=== PATIENT | female | born 1965 | race Caucasian/White ===

== ENCOUNTER 2019-02-17 17:36 | Emergency (ER) | payer OTHER ==
[2019-02-17] MEDS ORDERED: Norflex 60 MG/2 ML IM ONE (18:02)
[2019-02-17] MEDS ORDERED: TORAdol 30 mg Injection IM ONE (18:02)
--- NOTE | 2019-02-17 18:08 | ERPHSYRPT ---
- History of Present Illness Time Seen by Provider: 02/17/19 17:51 Source: patient Exam Limitations: no limitations Patient Subjective Stated Complaint: pt here for pain to left side of lower back that radiates to hip, pt denies any injury, she has had this prolem before Triage Nursing Assessment: pt alert, resp easy, skin w/d/p. no edema. Physician History: Pt started c/o pain in the left lumbar area, not radiating, denies any direct or indirect injury, no leg weakness, or loss of balder, bowel control, no abdominal pain, nausea or fever, other complaints, except chronic, recurrent bilateral lower leg numbness. Timing/Duration: day(s) (2), gradual onset Method of Injury: other (denies) Back Pain Location: lumbar spine, paraspinous muscles Severity of Pain-Max: severe Severity of Pain-Current: severe Modifying Factors: Improves With: immobilization, movement Associated Symptoms: numbness in legs/feet (recurrent, chronic) Previous symptoms: no prior history Allergies/Adverse Reactions: No Known Drug Allergies Allergy (Verified 02/17/19 17:57) Hx Influenza Vaccination/Date Given: No Hx Pneumococcal Vaccination/Date Given: No Immunizations Up to Date: Yes - Review of Systems Constitutional: No Symptoms Ears, Nose, & Throat: No Symptoms Respiratory: No Symptoms Cardiac: No Symptoms Abdominal/Gastrointestinal: No Symptoms Genitourinary Symptoms: No Symptoms Musculoskeletal: Back Pain Skin: No Symptoms Neurological: No Symptoms All Other Systems: Reviewed and Negative - Past Medical History Pertinent Past Medical History: Yes Other Medical History: foot pain - Past Surgical History Past Surgical History: Yes Musculoskeletal: Orthopedic Surgery Other Surgical History: shoulder,neck ,toes - Social History Smoking Status: Never smoker Exposure to second hand smoke: No Drug Use: none Patient Lives Alone: No - Female History Hx Last Menstrual Period: post - Nursing Vital Signs Nursing Vital Signs: Initial Vital Signs Temperature 97.2 F 02/17/19 17:51 Pulse Rate 66 02/17/19 17:51 Respiratory Rate 16 02/17/19 17:51 Blood Pressure 150/75 02/17/19 17:51 O2 Sat by Pulse Oximetry 99 02/17/19 17:51 Pain Scale Pain Intensity [Back] 9 Pain Intensity 9 - Physical Exam General Appearance: no apparent distress Eye Exam: eyes nml inspection Ears, Nose, Throat Exam: normal ENT inspection Neck Exam: normal inspection, non-tender Respiratory Exam: normal breath sounds, lungs clear Cardiovascular Exam: regular rate/rhythm, normal heart sounds, normal peripheral pulses, No murmur Gastrointestinal Exam: soft, normal bowel sounds, No tenderness, No distention, No mass, No guarding, No ecchymosis, No rebound, No organomegaly Back Exam: normal inspection, muscle spasm (left, paraspinal area), No CVA tenderness, No vertebral tenderness, No rash, No point tenderness Extremity Exam: normal inspection, No calf tenderness, No binh's sign Peripheral Pulses: dorsalis-pedis (R): 3+, dorsalis-pedis (L): 3+ Neurologic Exam: alert, oriented x 3, cooperative, normal mood/affect, sensation nml, other (normal DTR, equal bilat.), No motor deficits Skin Exam: normal color, warm, dry, No rash Lymphatic Exam: No adenopathy SpO2 Interpretation: normal SpO2: 99 O2 Delivery: Room Air - Course Nursing assessment & vital signs reviewed: Yes - Radiology Exams L-Spine X-ray Interpretation: Interpreted by me, Other (L5-S1 listhesis, otherwise negative) Ordered Tests: Active Orders 24 hr Category Date Time Status LUMBAR LIMITED (2 OR 3 VIEWS) Stat Exams 02/17/19 18:02 Taken UA W/RFX UR CULTURE Stat Lab 02/17/19 18:02 Completed Urine Triage Profile Stat Lab 02/17/19 18:02 Completed Medication Summary Discontinued Medications Generic Name Dose Route Start Last Admin Trade Name Marco A PRN Reason Stop Dose Admin Ketorolac Tromethamine 60 mg 02/17/19 18:02 02/17/19 18:28 Toradol 30 Mg Injection IM 02/17/19 18:03 60 mg STAT ONE Administration Ketorolac Tromethamine Confirm 02/17/19 18:26 Toradol 30 Mg Injection Administered 02/17/19 18:27 Dose 60 mg .ROUTE .STK-MED ONE Orphenadrine Citrate 60 mg 02/17/19 18:02 02/17/19 18:28 Norflex 60 Mg/2 Ml IM 02/17/19 18:03 60 mg STAT ONE Administration Orphenadrine Citrate Confirm 02/17/19 18:26 Norflex 60 Mg/2 Ml Administered 02/17/19 18:27 Dose 60 mg .ROUTE .STK-MED ONE Lab/Rad Data: Laboratory Results 02/17/19 02/17/19 Range/Units 18:02 18:02 Urine Color YELLOW (YELLOW) Urine Appearance CLEAR (CLEAR) Urine pH 6.0 (5-6) Ur Specific [place] 1.017 (1.005-1.025) Urine Protein NEGATIVE (Negative) Urine Ketones NEGATIVE (NEGATIVE) Urine Blood NEGATIVE (0-5) Ean/ul Urine Nitrite NEGATIVE (NEGATIVE) Urine Bilirubin NEGATIVE (NEGATIVE) Urine Urobilinogen NEGATIVE (0-1) mg/dL Ur Leukocyte Esterase NEGATIVE (NEGATIVE) Urine WBC (Auto) NONE (0-5) /HPF Urine RBC (Auto) NONE (0-2) /HPF U Epithel Cells (Auto) RARE (FEW) /HPF Urine Bacteria (Auto) NONE (NEGATIVE) /HPF Urine Mucus (Auto) SLIGHT (NEGATIVE) /HPF Urine Culture Reflexed NO (NO) Urine Glucose NEGATIVE (NEGATIVE) mg/dL Urine Opiates Level NEGATIVE (NEGATIVE) Ur Methadone NEGATIVE (NEGATIVE) Urine Barbiturates NEGATIVE (NEGATIVE) Ur Phencyclidine (PCP) NEGATIVE (NEGATIVE) Urine Amphetamine NEGATIVE (NEGATIVE) U Benzodiazepine Level NEGATIVE (NEGATIVE) Urine Cocaine NEGATIVE (NEGATIVE) Urine Marijuana (THC) NEGATIVE (NEGATIVE) - Progress Progress: improved Progress Note: 02/17/19 20:26 Pt feels a little better after Toradol and Norflex im, no fever, she was educated about our findings, will discharge her on PO Ultram and Flexeril to rest x 3-4 days, apply moist heat to her back and follow up with her physician next week. Counseled pt/family regarding: lab results, diagnosis, need for follow-up, rad results - Departure Departure Disposition: Home Clinical Impression: Back pain Qualifiers: Back pain location: low back pain Chronicity: acute Back pain laterality: bilateral Sciatica presence: without sciatica Qualified Code(s): M54.5 - Low back pain Condition: Stable Critical Care Time: No Referrals: DEAN KAUFMAN [Primary Care Provider] - Instructions: Low Back Pain (DC) Additional Instructions: Rest x 3-4 days, apply moist heat to back, and follow up with your physician next week, return if severe pain, sudden leg weakness, loss of bladder, bowel control! Prescriptions: Cyclobenzaprine HCl 10 mg [Cyclobenzaprine 10 MG] 10 mg PO TID #30 tablet Tramadol HCl 50 mg [Ultram 50 mg] 50 mg PO Q6H PRN #15 tablet PRN Reason: Pain
[2019-02-17] MEDS ORDERED: Norflex 60 MG/2 ML ONE (18:26)
[2019-02-17] MEDS ORDERED: TORAdol 30 mg Injection ONE (18:26)
[2019-02-17 20:03] VITALS: BP 103/77
[2019-02-17 20:07] LABS: Appearance CLEAR (CLEAR); Bilirubin NEGATIVE (NEGATIVE); Blood NEGATIVE Ery/ul (0-5); Epithelial Cells RARE /HPF (FEW); Glucose NEGATIVE (NEGATIVE); Ketones NEGATIVE (NEGATIVE); Leukocyte Esterase NEGATIVE (NEGATIVE); Mucus SLIGHT /HPF (NEGATIVE); Nitrite NEGATIVE (NEGATIVE); Protein,Urine Dip NEGATIVE (Negative); Specific Gravity 1.017 (1.005-1.025); Urobilinogen NEGATIVE mg/dL (0-1)
[2019-02-17 20:21] LABS: Amphetamine,Urine NEGATIVE (NEGATIVE); Barbiturate,Urine NEGATIVE (NEGATIVE); Benzodiazepine,Urine NEGATIVE (NEGATIVE); Cocaine,Urine NEGATIVE (NEGATIVE); Methadone,Urine NEGATIVE (NEGATIVE); Opiate,Urine NEGATIVE (NEGATIVE); PCP,Urine NEGATIVE (NEGATIVE); THC,Urine NEGATIVE (NEGATIVE)
[2019-02-17] MEDS ORDERED: ULTRAM 50 MG ONE (20:54)
[2019-02-17] MEDS ORDERED: ULTRAM 50 MG PO ONE (21:03)
[2019-02-17 21:05] VITALS: PULSE 70; O2SAT 97
--- NOTE | 2019-02-18 08:54 | XRAY ---
Indication: Low back pain 2 years. Comparison: None 3 views of the lumbar spine demonstrates 5 lumbar vertebral segments with moderate/advanced L5-S1 degenerative disc disease, bilateral L5 spondylolysis with 11-12 mm spondylolisthesis, and 3.5 cm gallstone. No other bony, articular, or soft tissue abnormalities.
== END 2019-02-17 21:04 | disposition home or self-care (01) ==
LOC: ED 17:36
DX: M54.5 Low back pain (principal)
CPT/HCPCS: 72100; 80307; 81001; 96372; 99284; J1885; J2360; A9270-GY

== ENCOUNTER 2021-09-29 16:43 | Emergency (ER) | payer OTHER ==
[2021-09-29] MEDS ORDERED: TYLENOL 325 MG PO ONE (17:08)
[2021-09-29] MEDS ORDERED: Inapsine 5 MG/2 ML IV ONE (17:08)
[2021-09-29] MEDS ORDERED: Sodium Chloride 0.9% 1000 ML 1,000 ML IV STA (17:08)
[2021-09-29] MEDS ORDERED: BENADRYL 50 MG/ML IV ONE (17:08)
[2021-09-29] MEDS ORDERED: Inapsine 5 MG/2 ML ONE (17:12)
[2021-09-29] MEDS ORDERED: TYLENOL 325 MG ONE (17:12)
[2021-09-29] MEDS ORDERED: Sodium Chloride 0.9% 1000 ML 1,000 ML ONE (17:12)
[2021-09-29] MEDS ORDERED: BENADRYL 50 MG/ML ONE (17:12)
[2021-09-29] MEDS ORDERED: Zofran 4 MG/2 ML VIAL IV ONE (17:13)
[2021-09-29] MEDS ORDERED: Zofran 4 MG/2 ML VIAL ONE (17:18)
[2021-09-29 17:36] LABS: Absolute Neutrophil Ct (ANC) 2.84 (1.4-6.9); BASOPHIL % 0.2 % (0.0-0.4); Basophil (Absolute #) 0.01 (0-0.4); Eosinophil % 1.1 % (0.00-5.0); Eosinophil (Absolute #) 0.05 (0-0.5); Hematocrit 42.9 % (35-47); Hemoglobin 13.8 gm/dl (12.0-16.0); Lymphocyte (Absolute #) 1.25 (1.0-4.6); Lymphocytes % 26.9 % (24.0-44.0); Mean Cell Volume 91.7 fl (78-100); Mean Corpuscular Hemoglobin 29.5 pg (26-32); Mean Corpuscular Hgb Concent. 32.2 g/dl (32-36); Mean Platelet Volume 10.7 fl (7.5-11.0); Monocyte (Absolute #) 0.49 (0.0-1.3); Monocytes % 10.6 % (0.0-12.0); Neutrophil % 61.2 % (36.0-66.0); Platelet Count 191 K/mm3 (150-450); Red Blood Count 4.68 M/mm3 (4.1-5.4); Red Cell Distribution Width 13.4 % (11.5-14.0); White Blood Count 4.6 K/mm3 (4.0-10.5)
[2021-09-29 17:39] LABS: Appearance SLIGHTLY CLOUDY (CLEAR); Bacteria NONE SEEN /HPF (NEGATIVE); Bilirubin NEGATIVE (NEGATIVE); Blood NEGATIVE Ery/ul (0-5); Epithelial Cells RARE /HPF (FEW); Glucose NEGATIVE (NEGATIVE); Ketones NEGATIVE (NEGATIVE); Leukocyte Esterase NEGATIVE (NEGATIVE); Mucus SLIGHT /HPF (NEGATIVE); Nitrite NEGATIVE (NEGATIVE); Protein,Urine Dip NEGATIVE (Negative); Specific Gravity 1.021 (1.005-1.025); Urobilinogen NEGATIVE mg/dL (0-1); WBC 0-2 /HPF (0-5)
--- NOTE | 2021-09-29 17:41 | ERPHSYRPT ---
- History of Present Illness Time Seen by Provider: 09/29/21 16:43 Source: patient Exam Limitations: no limitations Patient Subjective Stated Complaint: pt here for cough, headache, aches all over, low grade fever, nausea, she ad 2 postive covid tests Triage Nursing Assessment: pt alert, resp easy, face mask in place, skin w/d/p.no edema noted Physician History: 56 years old unvaccinated against COVID-19 presented to the ER with chief complaint of multiple symptoms of nausea, diarrhea with headache, body aches fatigue and tiredness. Denies any vomiting. Minimal nonproductive cough and sinus congestion with increased drainage. Subjective feeling of fever and chills. No chest pain or shortness of breath. Patient reports she tested positive for Covid last week and did not have any worsening of symptoms until 3 days ago. She is unable to hold much down and every time she eats started to have loose stool. It was watery initially and gradually getting semi-formed. Timing/Duration: week(s) (1), constant, gradual onset, worse Cough Quality/Degree: moderate, dry cough Possible Cause: illness exposure Modifying Factors: Worsens With: coughing Associated Symptoms: chills, cough, dizziness, headache, muscle aches, nasal congestion, nasal drainage, No lightheadedness, No shortness of breath Allergies/Adverse Reactions: adhesive tape Allergy (Verified 09/29/21 17:00) Home Medications: Atorvastatin Calcium 1 ea DAILY 09/29/21 [History] Gabapentin 300 mg [Neurontin 300 mg] 1 ea DAILY 09/29/21 [History] Zolpidem Tartrate 1 ea DAILY 09/29/21 [History] Hx Influenza Vaccination/Date Given: No Hx Pneumococcal Vaccination/Date Given: No Immunizations Up to Date: Yes Travel Risk - International Travel Have you traveled outside of the country in past 3 weeks: No - Coronavirus Screening Are you exhibiting any of the following symptoms?: Yes Symptoms: Cough: New Onset, Shortness of Breath, Vomiting/Diarrhea, Loss of Taste or Smell, Headaches/Body Aches/Fatigue - Vaccine Status Have you recieved a Covid-19 vaccination: No - Review of Systems Constitutional: Chills, Fatigue, Weakness Eyes: No Symptoms Ears, Nose, & Throat: Nose Congestion, Sinus Drainage, Painful Swallowing Respiratory: Cough, No Dyspnea Cardiac: No Chest Pain Abdominal/Gastrointestinal: Nausea, Diarrhea, No Abdominal Pain, No Vomiting Genitourinary Symptoms: No Symptoms Musculoskeletal: Myalgias Skin: No Symptoms Neurological: Headache Psychological: No Symptoms Endocrine: No Symptoms Hematologic/Lymphatic: No Symptoms Immunological/Allergic: No Symptoms - Past Medical History Pertinent Past Medical History: Yes Other Medical History: foot pain - Past Surgical History Past Surgical History: Yes Musculoskeletal: Orthopedic Surgery Other Surgical History: shoulder,neck ,toes,back - Social History Smoking Status: Never smoker Exposure to second hand smoke: No Drug Use: none Patient Lives Alone: No - Female History Hx Last Menstrual Period: post Hx Now: No - Nursing Vital Signs Nursing Vital Signs: Initial Vital Signs Temperature 99.6 F 09/29/21 16:54 Pulse Rate 114 H 09/29/21 16:54 Respiratory Rate 18 09/29/21 16:54 Blood Pressure 151/100 09/29/21 16:54 O2 Sat by Pulse Oximetry 94 L 09/29/21 16:54 Pain Scale Pain Intensity 8 - Physical Exam General Appearance: no apparent distress, alert Eye Exam: PERRL/EOMI, eyes nml inspection Ears, Nose, Throat Exam: normal ENT inspection, TMs normal, moist mucous membranes, pharyngeal erythema Neck Exam: normal inspection, supple, full range of motion Respiratory Exam: normal breath sounds, lungs clear Cardiovascular Exam: normal heart sounds, tachycardia Gastrointestinal/Abdomen Exam: soft, normal bowel sounds, No tenderness, No guarding Back Exam: normal inspection, normal range of motion Extremity Exam: normal inspection, normal range of motion Neurologic Exam: alert, oriented x 3, cooperative, assistant community director II-XII nml as tested, normal mood/affect, nml cerebellar function, nml station & gait, sensation nml Skin Exam: normal color SpO2 Interpretation: normal SpO2: 97 O2 Delivery: Room Air Ordered Tests: Active Orders 24 hr Category Date Time Status IV Insertion STAT Care 09/29/21 17:08 Active NPO (ED) STAT Care 09/29/21 17:08 Active CHEST 1 VIEW (PORTABLE) Stat Exams 09/29/21 17:35 Taken CBC W DIFF Stat Lab 09/29/21 17:33 Completed CMP Stat Lab 09/29/21 17:33 Completed LIPASE Stat Lab 09/29/21 17:33 Completed Lactic Acid Stat Lab 09/29/21 17:26 Completed UA W/RFX UR CULTURE Stat Lab 09/29/21 17:33 Completed Medication Summary Discontinued Medications Generic Name Dose Route Start Last Admin Trade Name Marco A PRLetitia Reason Stop Dose Admin Acetaminophen 975 mg 09/29/21 17:08 09/29/21 17:16 Acetaminophen 325 Mg Tablet PO 09/29/21 17:09 975 mg STAT ONE Administration Acetaminophen Confirm 09/29/21 17:12 Acetaminophen 325 Mg Tablet Administered 09/29/21 17:13 Dose 975 mg .ROUTE .STK-MED ONE Diphenhydramine HCl 25 mg 09/29/21 17:08 09/29/21 17:16 Diphenhydramine Hcl 50 Mg/Ml Vial IV 09/29/21 17:09 25 mg STAT ONE Administration Diphenhydramine HCl Confirm 09/29/21 17:12 Diphenhydramine Hcl 50 Mg/Ml Vial Administered 09/29/21 17:13 Dose 50 mg .ROUTE .STK-MED ONE Droperidol 0.625 mg 09/29/21 17:08 09/29/21 17:16 Droperidol 5 Mg/2 Ml Vial IV 09/29/21 17:09 0.625 mg STAT ONE Administration Droperidol Confirm 09/29/21 17:12 Droperidol 5 Mg/2 Ml Vial Administered 09/29/21 17:13 Dose 5 mg .ROUTE .STK-MED ONE Sodium Chloride 1,000 mls @ 999 mls/hr 09/29/21 17:08 09/29/21 18:34 Sodium Chloride 0.9% 1000 Ml IV 09/29/21 18:08 Infused .Q1H1M STA Infusion Sodium Chloride Confirm 09/29/21 17:12 Sodium Chloride 0.9% 1000 Ml Administered 09/29/21 17:13 Dose 1,000 mls @ ud .ROUTE .STK-MED ONE Ondansetron HCl 4 mg 09/29/21 17:13 09/29/21 17:19 Ondansetron Hcl 4 Mg/2 Ml Vial IV 09/29/21 17:14 4 mg STAT ONE Administration Ondansetron HCl Confirm 09/29/21 17:18 Ondansetron Hcl 4 Mg/2 Ml Vial Administered 09/29/21 17:19 Dose 4 mg .ROUTE .STK-MED ONE Lab/Rad Data: Laboratory Result Diagrams 09/29/21 17:33 09/29/21 17:33 Laboratory Results 09/29/21 09/29/21 09/29/21 Range/Units 17:33 17:33 17:33 WBC 4.6 (4.0-10.5) K/mm3 RBC 4.68 (4.1-5.4) M/mm3 Hgb 13.8 (12.0-16.0) gm/dl Hct 42.9 (35-47) % MCV 91.7 (78-100) fl MCH 29.5 (26-32) pg MCHC 32.2 (32-36) g/dl RDW 13.4 (11.5-14.0) % Plt Count 191 (150-450) K/mm3 MPV 10.7 (7.5-11.0) fl Gran % 61.2 (36.0-66.0) % Eos # (Auto) 0.05 (0-0.5) Absolute Lymphs (auto) 1.25 (1.0-4.6) Absolute Monos (auto) 0.49 (0.0-1.3) Lymphocytes % 26.9 (24.0-44.0) % Monocytes % 10.6 (0.0-12.0) % Eosinophils % 1.1 (0.00-5.0) % Basophils % 0.2 (0.0-0.4) % Absolute Granulocytes 2.84 (1.4-6.9) Basophils # 0.01 (0-0.4) Sodium 141 (137-145) mmol/L Potassium 3.5 (3.5-5.1) mmol/L Chloride 101 (98-107) mmol/L Carbon Dioxide 32 H (22-30) mmol/L Anion Gap 11.6 (5-15) MEQ/L BUN 14 (7-17) mg/dL Creatinine 0.81 (0.52-1.04) mg/dL Estimated GFR > 60.0 ML/MIN Glucose 101 (74-106) mg/dL Lactic Acid (0.4-2.0) Calcium 9.2 (8.4-10.2) mg/dL Total Bilirubin 0.30 (0.2-1.3) mg/dL AST 37 H (14-36) U/L ALT 29 (0-35) U/L Alkaline Phosphatase 79 (38-126) U/L Serum Total Protein 7.9 (6.3-8.2) g/dL Albumin 4.6 (3.5-5.0) g/dL Lipase 73 (23-300) U/L Urine Color YELLOW (YELLOW) Urine Appearance SLIGHTLY CLOUDY (CLEAR) Urine pH 6.0 (5-6) Ur Specific [place] 1.021 (1.005-1.025) Urine Protein NEGATIVE (Negative) Urine Ketones NEGATIVE (NEGATIVE) Urine Blood NEGATIVE (0-5) Ean/ul Urine Nitrite NEGATIVE (NEGATIVE) Urine Bilirubin NEGATIVE (NEGATIVE) Urine Urobilinogen NEGATIVE (0-1) mg/dL Ur Leukocyte Esterase NEGATIVE (NEGATIVE) Urine WBC (Auto) 0-2 (0-5) /HPF Urine RBC (Auto) NONE (0-2) /HPF U Epithel Cells (Auto) RARE (FEW) /HPF Urine Bacteria (Auto) NONE SEEN (NEGATIVE) /HPF Urine Mucus (Auto) SLIGHT (NEGATIVE) /HPF Urine Culture Reflexed NO (NO) Urine Glucose NEGATIVE (NEGATIVE) mg/dL 09/29/21 Range/Units 17:26 WBC (4.0-10.5) K/mm3 RBC (4.1-5.4) M/mm3 Hgb (12.0-16.0) gm/dl Hct (35-47) % MCV (78-100) fl MCH (26-32) pg MCHC (32-36) g/dl RDW (11.5-14.0) % Plt Count (150-450) K/mm3 MPV (7.5-11.0) fl Gran % (36.0-66.0) % Eos # (Auto) (0-0.5) Absolute Lymphs (auto) (1.0-4.6) Absolute Monos (auto) (0.0-1.3) Lymphocytes % (24.0-44.0) % Monocytes % (0.0-12.0) % Eosinophils % (0.00-5.0) % Basophils % (0.0-0.4) % Absolute Granulocytes (1.4-6.9) Basophils # (0-0.4) Sodium (137-145) mmol/L Potassium (3.5-5.1) mmol/L Chloride (98-107) mmol/L Carbon Dioxide (22-30) mmol/L Anion Gap (5-15) MEQ/L BUN (7-17) mg/dL Creatinine (0.52-1.04) mg/dL Estimated GFR ML/MIN Glucose (74-106) mg/dL Lactic Acid 0.7 (0.4-2.0) Calcium (8.4-10.2) mg/dL Total Bilirubin (0.2-1.3) mg/dL AST (14-36) U/L ALT (0-35) U/L Alkaline Phosphatase (38-126) U/L Serum Total Protein (6.3-8.2) g/dL Albumin (3.5-5.0) g/dL Lipase (23-300) U/L Urine Color (YELLOW) Urine Appearance (CLEAR) Urine pH (5-6) Ur Specific [place] (1.005-1.025) Urine Protein (Negative) Urine Ketones (NEGATIVE) Urine Blood (0-5) Ean/ul Urine Nitrite (NEGATIVE) Urine Bilirubin (NEGATIVE) Urine Urobilinogen (0-1) mg/dL Ur Leukocyte Esterase (NEGATIVE) Urine WBC (Auto) (0-5) /HPF Urine RBC (Auto) (0-2) /HPF U Epithel Cells (Auto) (FEW) /HPF Urine Bacteria (Auto) (NEGATIVE) /HPF Urine Mucus (Auto) (NEGATIVE) /HPF Urine Culture Reflexed (NO) Urine Glucose (NEGATIVE) mg/dL - Progress Progress: improved Air Movement: good Progress Note: 09/29/21 18:47 She is given symptomatic treatment for headache along with fluid bolus, on reevaluation feeling better. Chest x-ray did not show any acute findings reviewed by me, official report is pending. Grossly unremarkable lab work. Maintaining oxygen saturation around 97% on room air without any distress at all. She is given Zofran for symptomatic relief and recommended increase hydration and Tylenol as needed. Do not think she needs to be admitted and stable for discharge with outpatient follow-up. Blood Culture(s) Obtained: No Antibiotics given: No Counseled pt/family regarding: lab results, diagnosis, need for follow-up, rad results - Departure Departure Disposition: Home Clinical Impression: Viral syndrome Condition: Stable Critical Care Time: No Referrals: REYNALDO-ANNA,DEAN [Primary Care Provider] - Follow up/PCP as directed (1-2 days for reevaluation) Instructions: Viral Syndrome (DC), Cough, Adult (DC) Additional Instructions: Use Tylenol/Zofran as needed. Keep yourself well-hydrated. Follow-up with primary care for reevaluation. Return to ER for worsening diarrhea or if having worsening of cough/difficulty breathing/persistent high-grade fever chills etc. Prescriptions: Ondansetron HCl [Zofran] 4 mg PO TID PRN #7 tablet PRN Reason: Nausea/Vomiting
[2021-09-29 17:46] LABS: ALBUMIN 4.6 g/dL (3.5-5.0); ALKALINE PHOSPHATASE 79 U/L (38-126); ANION GAP 11.6 MEQ/L (5-15); BLOOD UREA NITROGEN 14 mg/dL (7-17); CHLORIDE 101 mmol/L (98-107); Calcium 9.2 mg/dL (8.4-10.2); Carbon Dioxide 32 mmol/L (22-30); Creatinine 1 0.81 mg/dL (0.52-1.04); EST GLOMERULAR FILTRATION RATE > 60.0 ML/MIN; Glucose 101 mg/dL (74-106); LIPASE 73 U/L (23-300); Potassium 3.5 mmol/L (3.5-5.1); SGOT/AST 37 U/L (14-36); SGPT/ALT 29 U/L (0-35); SODIUM 141 mmol/L (137-145); Total Protein 7.9 g/dL (6.3-8.2)
--- NOTE | 2021-09-30 08:37 | XRAY ---
Indication: Cough, nausea, and diarrhea. Positive Covid 19. Comparison: None Portable chest demonstrates left mid lung peripheral subsegmental atelectasis/scarring. Remaining heart and lungs unremarkable. Bony thorax intact with minimal degenerative changes and cervical thoracic junction fusion hardware. Impression: Nonacute chest with chronic features.
== END 2021-09-29 19:08 | disposition home or self-care (01) ==
LOC: ED 16:43
DX: B34.9 Viral infection, unspecified (principal); Z79.899 Other long term (current) drug therapy; R11.0 Nausea; R19.7 Diarrhea, unspecified; R51.9 Headache, unspecified; R53.83 Other fatigue; R09.81 Nasal congestion
CPT/HCPCS: 36000; 36415; 71045; 80053; 81001; 83605; 83690; 85025; 96374; 96375; 99284; J1200; J2405; A9270-GY